=== PATIENT | female | born 1985 | race African-American/Black ===

== ENCOUNTER 2020-02-08 06:10 | Emergency (ER) | payer MEDICAID ==
[~2020-02-08] VITALS: Ht 167.6 cm; Wt 65.0 kg
[2020-02-08] MEDS ORDERED: DIAZEPAM 5 MG TABLET PO ONE (06:45)
[2020-02-08] MEDS ORDERED: KETOROLAC 60MG/2ML VIAL IM ONE (06:45)
[2020-02-08] MEDS ORDERED: ONDANSETRON 4MG ODT PO ONE (06:45)
[2020-02-08] MEDS ORDERED: HYDROCODONE/ACETAMINOPHEN 5/325MG TABLET PO ONE (06:45)
[2020-02-08 07:40] LABS: CLARITY URINE CLOUDY (CLEAR); COLOR URINE YELLOW (YELLOW); KETONES URINE TRACE (NEGATIVE); LEUKOCYTE ESTERASE URINE TRACE (NEGATIVE); NITRITE URINE NEGATIVE (NEGATIVE); OCCULT BLOOD URINE NEGATIVE (NEGATIVE); PROTEIN URINE NEGATIVE (NEGATIVE); SPECIFIC GRAVITY URINE 1.016 (1.005-1.030)
[2020-02-08 10:53] VITALS: BP 144/66
== END 2020-02-08 10:54 | disposition home or self-care (01) ==
LOC: ER 06:25
DX: M54.5 Low back pain (principal)
CPT/HCPCS: 72100; 81003; 96372; 99284; J1885; Q0162